=== PATIENT | male | born 1965 | race Two or more races ===

== ENCOUNTER → 2017-06-11 | Day surgery (SDC) | payer OTHER ==
[~2017-06-11] MED LIST: ACETAMINOPHEN 1,000 MG/100 ML BTL IV ONE; CEFAZOLIN 2 Gram 2 GM/50 ML BAG IVPB ONE
== END | disposition home or self-care (01) ==
LOC: SUR 11:03
PROVIDERS: ATTEND Orthopaedic Surgery
DX: Z53.9 Procedure and treatment not carried out, unspecified reason (principal)